=== PATIENT | female | born 1980 | race Caucasian/White ===

== ENCOUNTER 2022-01-13 10:20 | Outpatient (CLI) | payer BC, SELFPAY ==
[2022-01-13 19:43] LABS: Basophils Percent Auto 0.8 % (0.2-1.2); Eosinophils Absolute Auto 0.1 K/mm3 (0-0.3); Eosinophils Percent Auto 1.7 % (0-4.4); Hematocrit 44.8 % (37.0-47.0); Hemoglobin 14.7 g/dL (12.0-15.0); Immature Granulocyte Absolute 0.01 K/mm3 (0.00-0.031); Immature Granulocyte Percent A 0.2 % (0-0.5); Lymphocytes Absolute Auto 1.32 K/mm3 (0.9-3.2); Lymphocytes Percent Auto 27.7 % (18.3-44.2); Mean Corpuscular HGB Conc 32.8 g/dl (32-36); Mean Corpuscular Hemoglobin 31.3 pg (26-34); Mean Corpuscular Volume 95.3 fl (80-100); Mean Platelet Volume 9.7 fl (7.4-10.4); Monocytes Absolute Auto 0.3 K/mm3 (0.1-0.6); Monocytes Percent Auto 6.9 % (2.6-8.5); Neutrophils Percent Auto 62.7 % (45.5-73.1); Platelet Count Result 244 k/mm3 (150-375); Red Cell Distribution Width 12.9 % (11.5-14.5); White Blood Count 4.8 K/mm3 (4.5-10.0)
[2022-01-13 19:55] LABS: Alanine Aminotransferase 17 U/L (6-35); Albumin Level 4.6 g/dL (3.5-5.1); Alkaline Phosphatase 57 U/L (38-126); Anion Gap 12 mmol/L (8-16); Aspartate Amino Transferase 23 U/L (14-36); Bilirubin,Total 0.5 mg/dL (0.2-1.3); Blood Urea Nitrogen 10 mg/dL (7-17); Calcium 9.7 mg/dL (8.4-10.2); Carbon Dioxide 27 mmol/L (22-30); Chloride 99 mmol/L (98-107); Cholesterol 185 mg/dL (0-200); Estimated Glomerular Filt Rate > 60; Glucose 89 mg/dL (65-110); HDL Direct 47 mg/dL; Potassium 3.6 mmol/L (3.4-5.0); Sodium 138 mmol/L (137-145); Triglycerides 76 mg/dL (<150)
[2022-01-13 20:05] LABS: LDL Cholesterol Direct 103 mg/dL
== END 2022-01-13 10:21 | disposition home or self-care (01) ==
LOC: ANHGOSHLAB 10:22
PROVIDERS: PCP Internal Medicine; Visit Provider Nurse Practitioner
DX: Z13.29 Encounter for screening for other suspected endocrine disorder (principal); Z13.220 Encounter for screening for lipoid disorders
CPT/HCPCS: 36415; 80053; 80061; 85025

== ENCOUNTER → 2022-01-20 12:53 | Outpatient (CLI) | payer BC, SELFPAY ==
--- NOTE | ~2022-01-20 | XR_ITS ---
EXAM: XR lumbar spine 2-3V DATE: 01/20/2022 13:08 HISTORY: chronic bilat back pain, no injury . COMPARISON: None available. FINDINGS: Mild lumbar scoliosis. 5 nonrib-bearing lumbar-type vertebral bodies. Pedicles intact. Norm al vertebral body alignment. Vertebral body heights preserved. Mild disc space narrowing at L3-4. Sev ere disc space narrowing at L4-5 and L5-S1. Multilevel facet sclerosis. No fracture or dislocation. I UD projecting over the midline pelvis. IMPRESSION: Severe degenerative disc disease at L4-5 and L5-S1. Mild lower lumbar facet arthropathy. Reviewed, dictated and finalized at location K. [employer]ET[employer] REPRESENTATIVE IMPRESSION: Severe degenerative disc disease at L4-5 and L5-S1. Mild lower lumb ar facet arthropathy.
== END ==
PROVIDERS: PCP Nurse Practitioner; Visit Provider Nurse Practitioner
DX: M51.36 Other intervertebral disc degeneration, lumbar region (principal); M51.37 Other intervertebral disc degeneration, lumbosacral region
CPT/HCPCS: 72100

== ENCOUNTER 2022-04-23 08:00 | Outpatient (RCR) | payer BC, SELFPAY ==
--- NOTE | 2022-02-12 11:40 | PTOPEVAL1 ---
Assessment and note entered by Andrew Oswald, PT, DPT Evaluation Information Assessment Status Evaluation Diagnosis low back pain Subjective Information Pt states she has mild chronic back pain since her last in 2010, this was contributed to sciatic pain. She states for a very long time it was centralized lower back pain, now this pain is higher, towards her ribs. She states last month she was bedridden for a couple of days, she has very severe pain with a fever and chills. She states she initial thought she had an infection but this was ruled about. Imaging shows severe DJD, and lumbar scoliosis. Pt states prior to this she enjoyed riding her bike and running but has stopped this all together as she does not know if she will further damage her back. Reported Pain Level Pain Score 3: Self Report Assessment PT Clinical Summary Rissa presents to therapy today for her initial evaluation with a diagnosis of low back pain. Today she demonstrates an anterior tilted pelvis in addition to tight hip flexors likely contributing to her chronic low back pain. During testing today, her RLE also appeared longer, this difference was minimized during muscle energy techniques and her pain was partially relieved. She demonstrates good LE strength and ROM. Skilled physical therapy services are indicated to strengthen pelvic musculature, to improve body mechanics and core engagement, to manage pain, and to return to baseline function. Plan of Care Interventions Electrical Stimulation,Hot Pack/Cold Pack,Manual Therapy,Neuro Re-education,Patient/Caregiver Educati,Therapeutic Activities,Therapeutic Exercise PT Services Indicated Yes Treatment Frequency and 2x/wk for 5 wks Duration These treatments will address the objective and functional deficits as defined above. The patient will be advanced safely and appropriately in order for the patient to progress towards his/her prior level of function. Additional exercises will be introduced and as well as a comprehensive home exercise program upon discharge, if needed, ?to ensure carryover of functional gains achieved in the clinic. This treatment plan has been reviewed and agreement upon by the patient.
--- NOTE | 2022-03-26 09:52 | PTOPPROG ---
Assessment and note entered by Andrew Oswald, PT, DPT Evaluation Information Assessment Status Progress Diagnosis low back pain Subjective Information Pt states she recently traveled and had a 8-9 hour flight, she states sitting for that long was hard . She reports doing lots of walking for multiple days in a row. She states her R sided pain is still about the same. She reports this is a dull, achy, pulling sensation. She states her tailbone is less tender than when she started. Assessment PT Clinical Summary Rissa presents to therapy today for her progress report following 6 visits of skilled therapy are participation in a home exercise program. Today she demonstrates improvements in the intensity of her pain at baseline and at a max. She continues to demonstrate active trunk motions with hesitations and increased pain at the end ROM. She continues to have LE and trunk motion that is limited by pain. She has increased tissue density noted in her R lumbar paraspinals. Continuation of skilled physical therapy services are indicated to address pain, tissue density, and core strength to improve functional mobility and to return to baseline function. Plan of Care Interventions Electrical Stimulation,Hot Pack/Cold Pack,Manual Therapy,Neuro Re-education,Patient/Caregiver Educati,Therapeutic Activities,Therapeutic Exercise PT Services Indicated Yes Treatment Frequency and 2x/wk for 4 wks Duration These treatments will address the objective and functional deficits as defined above. The patient will be advanced safely and appropriately in order for the patient to progress towards his/her prior level of function. Additional exercises will be introduced and as well as a comprehensive home exercise program upon discharge, if needed, ?to ensure carryover of functional gains achieved in the clinic. This treatment plan has been reviewed and agreement upon by the patient.
--- NOTE | 2022-04-01 10:03 | PCPTNOTE ---
Patient canceled appointment due to illness.
--- NOTE | 2022-04-23 08:59 | PTOPDC ---
Assessment and note entered by Andrew Oswald, PT, DPT Evaluation Information Assessment Status Discharge Diagnosis low back pain Subjective Information Pt states her back pain just depends on the day. She reports frustration as she has not found a trigger or any aggravating factors. Pt reports a localization of symptoms from her lower ribs to now just her lower back. She states she has been coughing more, she gets sharp pains with this. Reported Pain Level Pain Score 4: Self Report Assessment PT Clinical Summary Rissa presents to therapy today for her progress report following 12 visits of skilled therapy to treat her low back pain. Today she reports and demonstrates minimal improvement in over all symptoms. She continues to have increased muscle spasms and soft tissue density in his lumbar paraspinals that have not improved with therapy interventions. She will be discharged at this time d/t poor progress, it is recommended that she follow up with her referring provider to discuss other treatment options. Plan of Care Interventions Electrical Stimulation,Hot Pack/Cold Pack,Manual Therapy,Neuro Re-education,Patient/Caregiver Educati,Therapeutic Activities,Therapeutic Exercise Treatment Frequency and to be discharged Duration
== END 2022-04-23 09:59 | disposition home or self-care (01) ==
LOC: ANHGOSHPT 08:00
PROVIDERS: PCP Nurse Practitioner; Visit Provider Nurse Practitioner
DX: M54.50 Low back pain, unspecified (principal)
CPT/HCPCS: 97110; 97112; 97140; 97161; 97530

== ENCOUNTER → 2022-07-24 14:39 | Outpatient (CLI) | payer BC, SELFPAY ==
--- NOTE | ~2022-07-24 | MR_ITS ---
EXAMINATION: MR lumbar spine wo con DATE: 07/24/2022 15:15 INDICATION: Lumbar radiculopathy. Chronic low back pain. TECHNIQUE: Magnetic resonance imaging (MRI) of the lumbar spine was performed without intravenous con trast. Sequences included sagittal T2-weighted FSE, sagittal T2-weighted FS FSE, sagittal T1-weighted FSE, and axial T2-weighted FSE. COMPARISON: Lumbar spine radiographs 01/20/2022 FINDINGS: There is 11 degrees dextroscoliosis of lumbar spine. L5 is a transitional segment. There is 3 mm retrolisthesis of L4 on L5. Vertebral body heights are normal. There is moderately decreased di sc height at L4-L5. The distal spinal cord signal intensity is normal. The conus medullaris is at T12 -L1. The following disc levels are specifically discussed: L1-L2: The disc does not extend beyond the endplate margin. There is mild left facet joint osteoarthr itis. There is no neural foraminal stenosis. There is no central canal stenosis. L2-L3: The disc does not extend beyond the endplate margin. There is no facet joint osteoarthritis. T here is no neural foraminal stenosis. There is no central canal stenosis. L3-L4: The disc does not extend beyond the endplate margin. There is no facet joint osteoarthritis. T here is no neural foraminal stenosis. There is no central canal stenosis. L4-L5: The disc is bulging and has an annular fissure. There is mild right facet joint osteoarthritis . There is mild bilateral neural foraminal stenosis. There is mild central canal stenosis. L5-S1: The disc does not extend beyond the endplate margin. There is no facet joint osteoarthritis. T here is no neural foraminal stenosis. There is no central canal stenosis. IMPRESSION: 1. Moderate spondylosis at L4-L5. 2. Lumbar dextroscoliosis. Reviewed, dictated and finalized at location E.
== END ==
PROVIDERS: PCP Nurse Practitioner; Visit Provider Nurse Practitioner
DX: M47.26 Other spondylosis with radiculopathy, lumbar region (principal)
CPT/HCPCS: 72148

== ENCOUNTER → 2022-09-25 14:00 | Outpatient (CLI) | payer BC, SELFPAY ==
--- NOTE | ~2022-09-25 | MM_ITS ---
EXAMINATION: MM screening [facility] w penny HISTORY: Screening mammogram TECHNIQUE: Craniocaudal and mediolateral oblique 3-D tomosynthesis images were obtained and synthetic 2-D images were generated. CAD analysis was submitted and interpreted. COMPARISON: No prior mammogram is available for comparison at this institution. BREAST PARENCHYMAL COMPOSITION: FINDINGS: There is no evidence of suspicious mass, calcification, or architectural distortion to sugg est malignancy in either breast. There has been no suspicious interval change. IMPRESSION: 1. No mammographic evidence of malignancy. 2. Recommend routine screening mammography in one year. BI-RADS Category 1: Negative Reviewed, dictated and finalized at location A.
== END ==
PROVIDERS: PCP Nurse Practitioner; Visit Provider Obstetrics & Gynecology
DX: Z12.31 Encounter for screening mammogram for malignant neoplasm of breast (principal)
CPT/HCPCS: 77063; 77067

== ENCOUNTER 2023-11-02 12:34 | Outpatient (CLI) | payer BC, SELFPAY ==
--- NOTE | ~2023-11-02 | MM_ITS ---
EXAMINATION: MM screening [facility] w penny HISTORY: Screening TECHNIQUE: Craniocaudal and mediolateral oblique 3-D tomosynthesis images were obtained and synthetic 2-D images were generated. CAD analysis was submitted and interpreted. COMPARISON: 09/25/2022 BREAST PARENCHYMAL COMPOSITION: Not dense: There are scattered areas of fibroglandular density. FINDINGS: There is no evidence of suspicious mass, calcification, or architectural distortion to sugg est malignancy in either breast. There has been no suspicious interval change. IMPRESSION: 1. No mammographic evidence of malignancy. 2. Recommend routine screening mammography in one year. BI-RADS Category 1: Negative Reviewed, dictated and finalized at location B.
== END 2023-11-02 12:35 ==
LOC: MICIMG 12:34
PROVIDERS: PCP Nurse Practitioner; Visit Provider Obstetrics & Gynecology
DX: Z12.31 Encounter for screening mammogram for malignant neoplasm of breast (principal)
CPT/HCPCS: 77063; 77067

== ENCOUNTER 2024-11-06 10:21 | Outpatient (CLI) | payer BC, SELFPAY ==
--- NOTE | ~2024-11-06 | MM_ITS ---
EXAMINATION: MM screening [facility] w penny HISTORY: Screening TECHNIQUE: Craniocaudal and mediolateral oblique 3-D tomosynthesis images were obtained and synthetic 2-D images were generated. CAD analysis was submitted and interpreted. COMPARISON: Comparison to multiple prior studies sequentially, with oldest reviewed study dated 09/25/2022. BREAST PARENCHYMAL COMPOSITION: There are scattered areas of fibroglandular density. FINDINGS: There is no evidence of suspicious mass, calcification, or architectural distortion to suggest malignancy in either breast. IMPRESSION: 1. No mammographic evidence of malignancy. 2. Recommend routine screening mammography in one year. BI-RADS Category 1: Negative Reviewed, dictated and finalized at location B.
== END 2024-11-06 10:22 | disposition home or self-care (01) ==
LOC: MICIMG 10:22
PROVIDERS: PCP Obstetrics & Gynecology; Visit Provider Obstetrics & Gynecology
DX: Z12.31 Encounter for screening mammogram for malignant neoplasm of breast (principal)
CPT/HCPCS: 77063; 77067